=== PATIENT | female | born 1960 | race African-American/Black ===

== ENCOUNTER 2016-06-10 01:40 | Inpatient (IN) ==
[2016-06-10] MEDS ORDERED: niCARdipine 25 MG/10 ML VIAL IV ONE ×3 (02:03→12:44)
--- NOTE | 2016-06-10 02:11 | Emergency Department Note ---
Arrival - Arrival Chief Complaint: Blood Pressure ED Nursing Triage Note: C/C transfer from [facility] ER for HTN Crisis, NSTEMI, CHF. Pt stopped taking all her meds approx a year ago. Pt went to ER tonight for shortness of breath for 2 months and HTN. Pt was given ASA 325mg, Lovenox 100mg at [facility] ER Mode of Arrival: Stretcher Time Seen by Provider: 06/10/16 02:05 - History of Present Illness HPI Narrative: The patient was sent from [facility] for hypertensive emergency/ urgency. She was transferred via ambulance with IV nitroglycerin. This was poorly controlling her blood pressure. She remains relatively asymptomatic. She specifically denies chest pain at any point during the encounter or today. She denies any vomiting but was slightly nauseated and lightheaded and she also has had some blurring of vision. Allergies/Adverse Reactions: Allergies Allergy/AdvReac Type Severity Reaction Status Date / Time No Known Allergies Allergy Unverified 06/10/16 01:52 Home Medications: Home Medications Medication Instructions Recorded Confirmed Type No Known Home Medications [No 06/10/16 06/10/16 History Known Home Medications] Review of System - Review of System 12 point system: reviewed and no additional remarkable complaints except as stated Medical,Surgical,& Family Hx - Medical History Cardio: History of: Hypertension - Social History Smoking Status: Never smoker Frequency of Alcohol Use: None Type of Drug Use: None Exam Physical Examination: The patient appears well-developed and well-nourished with no acute distress. HEENT exam is unremarkable. The oropharynx is moist. Tympanic membranes are shiny. The neck appears normal with midline appearance of the trachea. There is full range of motion. The lungs are clear bilaterally. There is symmetric movement of the chest wall with inspiration. No point tenderness is present. The heart has a regular rate and rhythm with no gallops or murmurs. Abdomen demonstrates a normal appearance and is nontender with no rebound or guarding. Normal active bowel sounds are present. The extremities demonstrate no clubbing, cyanosis, or edema and are intact. Normal range of motion is present. Neurological exam is unremarkable. Cranial nerves II through XII were checked and intact. No focal motor sensory deficit is present in the extremities. Vital Signs: Vital Signs Temperature 98.3 F 06/10/16 01:41 Pulse Rate 84 03/04/17 01:41 Respiratory Rate 18 06/10/16 01:41 Blood Pressure 224/137 06/10/16 01:41 O2 Sat by Pulse Oximetry 100 06/10/16 01:41 Course - Consultations Consultation #1: Dr. Lawrence Handley will evaluate and admit the patient. Time: 02:10 Disposition Clinical Impression: Malignant hypertension Case discussed with: patient Disposition: Still a Patient Condition: Stable Time of Disposition: 02:11
[2016-06-10] MEDS: niCARdipine INJ 25 MG in SODIUM CHLORIDE 0.9% 240 ML IV SCH ×2 (02:15→06:26)
--- NOTE | 2016-06-10 03:17 | Hospitalist History & Physical ---
Assessment and Plan (1) Hypertensive emergency Status: Acute Current Visit: Yes (2) Hypokalemia Status: Acute Current Visit: Yes (3) Chronic kidney disease Status: Acute Current Visit: Yes (4) Medical non-compliance Status: Acute Assessment and plan: Plan for this patient, we will admit this patient our service. She's been put on a Cardene infusion. We'll need to start by mouth medications on her and titrate off the Cardene infusion. Recheck her labs at 7 a.m. Current supplement her with some potassium. Of feel that her increased creatinine is associated with her chronic kidney disease secondary to her untreated hypertension Current Visit: Yes History of Present Illness Chief complaint: sent from [facility] History of present illness: Ms. Serrano is a 56 year old female with past medical history is significant for hypertension who is been noncompliant with her medications to him 1 year presents as a transfer from [facility]. 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 Her blood pressure was taken and her systolic was at 300. They notified EMS and she was taken up to the [facility]. Labs were drawn and she was put on nitroglycerin infusion. Patient was diagnosed with hypertensive urgency or emergency and congestive heart failure. This was an but the congestive heart failure was based on elevated proBNP. 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 - Family History Family History: Reports;: Family Diabetes, Family Heart Disease - Social History Smoking Status: Never smoker Frequency of Alcohol Use: None Type of Drug Use: None 12 point system: reviewed and no additional remarkable complaints except as stated Exam - Constitutional Vitals: Period Temp Pulse Resp BP Sys/Eller Pulse Ox Last 24 Hr 98.3 F 84 18 224/137 100 General appearance: over weight - Head Head exam: Present: normal inspection - Eye Eye exam: Present: EOMI Pupils: Present: CLIFFORD - ENT ENT exam: Present: normal exam - Neck Neck exam: Present: normal inspection - Respiratory Respiratory exam: Present: clear to auscultation bilaterally - Cardiovascular Cardiovascular exam: Present: regular rate and rhythm - GI/Abdominal GI/Abdominal exam: Present: normal bowel sounds - Extremities Exam Extremities exam: Present: normal inspection - Back Exam Back exam: Present: normal inspection - Neurological Exam Neurological exam: Present: alert - Psychiatric Psychiatric exam: Present: normal affect Results - Labs Labs: Labs from outside facility pro-BMP to well thousand 105 magnesium 2 white count 8.8 hemoglobin 9.1 hematocrit 27.6 platelets 260 glucose 112 BUN 26 creatinine 2.4 calcium 8.5 serum sodium 142 potassium 2.8 chloride 102 bicarbonate 32
[2016-06-10] MEDS ORDERED: ALBUTEROL 2.5 MG/3 ML NEB RESP TX PRN (03:27)
[2016-06-10] MEDS ORDERED: ACETAMINOPHEN 325 MG TABLET PO PRN (03:27)
[2016-06-10 07:55] LABS: Basophils % 0.5 % (0.0-0.8); Eosinophils # 0.1 10*3/uL (0.0-0.87); Eosinophils % 1.4 % (0.00-10.9); Hematocrit 28.1 VOL% (35.7-47.0); Hemoglobin 9.1 GM/DL (12.0-16.0); Immature Granulocytes % 0.1 %; Immature Granulocytes Absolute 0.01 #; Lymphocytes % 12.7 % (21.3-54.2); Mean Corpuscular HGB Conc 32.4 GM/DL (32-36); Mean Corpuscular Hemoglobin 28 PG (27-34); Mean Corpuscular Volume 86.5 FL (87-102); Mean Platelet Volume 11.4 FL (9.6-12.0); Monocytes # 0.4 10*3/uL (0.11-0.8); Neutrophils # 6.2 10*3/uL (1.4-7.4); Neutrophils % 80.3 % (38.7-73.9); Platelet Count 250 T/CUMM (130-400); Red Blood Count 3.25 MC/CUMM (3.8-5.5); Red Cell Distribution Width 16.4 % (9.3-17.3); White Blood Count 7.7 T/CUMM (4-12)
[2016-06-10 08:24] LABS: Calcium 8.7 MG/DL (8.5-10.1); Osmolality,Calculated 291.8 MOS/KG (273-304); Thyroid Stimulating Hormone 2.58 uIU/ml (0.358-3.74)
[2016-06-10 08:36] LABS: Barbiturates Screen,Urine Negative (Negative); Benzodiazepines Screen,Urine Negative (Negative); Cannabinoid Screen,Urine Negative (Negative); Opiate Screen,Urine Negative (Negative); Phencyclidine Screen,Urine Negative (Negative)
[2016-06-10] MEDS ORDERED: PANTOPRAZOLE 40 MG TABLET PO SCH (09:00)
--- NOTE | 2016-06-10 11:07 | EKG Report ---
Stationary ECG Study [facility] ER Test Date: 06/10/2016 1:46:02 AM Pat Name: NONA SEGURA Department: Room: Gender: F [employer]: SR : 1960 Requested by: Ellis Tuttle Order Number: [id number] Reading MD: KIANA OBREGON Intervals [place] Rate: 82 P: -27 NM: 139 QRS: -26 QRSD: 113 T: -56 QT: 405 QTc: 444 Interpretive Statements SINUS RHYTHM WITH SINUS ARRHYTHMIA LEFT AXIS DEVIATION NON-SPECIFIC INTRAVENTRICULAR CONDUCTION DELAY ST DEVIATION AND T-WAVE ABNORMALITY, CONSIDER INFERIOR ISCHEMIA Electronically Signed On 06-11-16 10:57:12 RU[employer]ER GASK[employer] INSPECTOR TRIMMER by KIANA OBREGON [email or web address]
--- NOTE | 2016-06-10 12:32 | ECHO Report ---
Zach, Sydnee Exam Date: 06/10/2016 09:17 Referring Physician: Technologist: Zoran ROWELL Age: 56 Ht (in): Wt (lb): Gender: F Exam Location: [facility] Echo Indications: HTN Crisis, hypokalemia, CKD BP: / HR: Rhythm: Sinus Technical Quality: Fair IMPRESSIONS Moderate concentric left ventricular hypertrophy with diastolic dysfunction. Left ventricular ejection fraction is estimated at 50-55 %. Normal right ventricular size. Normal right atrial size. Normal left atrial size. Mildly thickened mitral valve with mild mitral regurgitation. Aortic valve sclerosis without stenosis or regurgitation. Morphologically normal tricuspid valve. Moderate tricuspid valve regurgitation. Tricuspid regurgitation velocities suggest a PAP of 28.3 mmHg + RAP. Morphologically normal pulmonic valve. No pericardial effusion. Normal size aortic root and proximal ascending aorta. MEASUREMENTS (Male / Female) Normal Values 2D ECHO LV Diastolic Diameter PLAX 4.5 cm 4.2 - 5.9 / 3.9 - 5.3 cm LV Systolic Diameter PLAX 3.4 cm LV Fractional Shortening PLAX 23.9 % IVS Diastolic Thickness 2.0 cm 0.6 - 1.0 / 0.6 - 0.9 cm LVPW Diastolic Thickness 1.4 cm 0.6 - 1.0 / 0.6 - 0.9 cm RV Internal Dim ED PLAX 2.8 cm Aortic Root Diameter 2.6 cm LA Systolic Diameter LX 3.4 cm 3.0 - 4.0 / 2.7 - 3.8 cm DOPPLER TR Peak Velocity 266.0 cm/s TR Peak Gradient 28.3 mmHg FINDINGS Left Ventricle Moderate concentric left ventricular hypertrophy with diastolic dysfunction. Left ventricular ejection fraction is estimated at 50-55 %. Right Ventricle Normal right ventricular size. Right Atrium Normal right atrial size. Left Atrium Normal left atrial size. Mitral Valve Mildly thickened mitral valve with mild mitral regurgitation. Aortic Valve Aortic valve sclerosis without stenosis or regurgitation. Tricuspid Valve Morphologically normal tricuspid valve. Moderate tricuspid valve regurgitation. Tricuspid regurgitation velocities suggest a PAP of 28.3 mmHg + RAP. Pulmonic Valve Morphologically normal pulmonic valve. Pericardium No pericardial effusion. Aorta Normal size aortic root and proximal ascending aorta. Catracho Diana MD (Electronically Signed) Final Date: 10 June 2016 12:31
[2016-06-10] MEDS ORDERED: amLODIPine 10 MG TABLET PO SCH (14:00)
[2016-06-10] MEDS: PANTOPRAZOLE 40 MG TABLET PO SCH (15:39)
[2016-06-10] MEDS: ENOXAPARIN 30 MG/0.3 ML SYRINGE SUBCUT SCH (15:40)
[2016-06-10 15:53] LABS: Apearance,Urine CLEAR (Clear); Bilirubin,Urine Negative (Negative); Blood, Urine Small mg/dL (Negative); Glucose,Urine (UA) 50 mg/dL (Negative); Ketones,Urine Negative (Negative); Nitrite,Urine Negative (Negative); Protein,Urine Negative; RBC,Urine 3 /HPF (0-4); Squamous Epithelial Cell,Urine Occasional /HPF (0-10); Urine Color Straw (Yellow); Urine Specific Gravity 1.006 (1.001-1.035); Urine Urobilinogen < 2.0 EU/DL (0.2-1.0); WBC,Urine <1 /HPF (0-6)
[2016-06-10] MEDS: POTASSIUM CHLORIDE 20 MEQ TABLET PO PRN ×3 (16:30→20:01)
[2016-06-10] MEDS: niCARdipine INJ 50 MG in SODIUM CHLORIDE 0.9% 480 ML IV SCH (21:17)
--- NOTE | 2016-06-11 07:47 | Hospitalist Progress Note ---
Hospitalist: Subjective Interval history: Patient complaining of seeing spots in her right eye this morning. She reports feeling lethargic. She denies any headache, epistaxis, chest pain, shortness of breath, palpitations, nausea, vomiting or abdominal pain. She is tolerating oral intake well. Exam - Constitutional Vitals: Period Temp Pulse Resp BP Sys/Eller Pulse Ox Last 24 Hr 97.2 F-98.8 F 79-109 16-24 127-209/75-136 96-100 Exam: GEN: Patient is awake alert and oriented 4 lying in the hospital bed in no acute distress. HEENT exam reveals pupils are equal and reactive to light. Extraocular muscles are intact. Sclerae clear. Conjunctivae pink. Nares are patent. No discharge or epistaxis noted. Oropharynx is clear. No oral lesions or thrush. Neck: Supple no lymphadenopathy or thyromegaly appreciated no JVD. Neck is short and thick. Cardiovascular: Regular rate and rhythm. Normal S1-S2. No obvious murmurs rubs or gallops. Lungs: clear to auscultation bilaterally. Diminished at the bases. Nonlabored breathing noted. Abdomen: Soft nontender nondistended positive bowel sounds no organomegaly or masses appreciated though difficult to assess given her body habitus. Extremity: Warm and well perfused. No clubbing cyanosis or edema. Neuro exam: Cranial nerves II through XII are intact except for decreased visual acuity of the right eye. Motor exam revealed 5 out of 5 strength of the upper and lower extremities bilaterally. Sensory exam was grossly intact. Gait was not assessed. Babinski was absent. No clonus noted. Results - Labs CBC & BMP: 06/10/16 07:38 06/11/16 07:27 - Impressions (1) Hypertensive urgency Status: Acute Current Visit: Yes -Off Cardene since early this am. BP better controlled on Clonidine and Nifedipine. F/U ECHO. Monitor vitals (2) Hypokalemia Status: Acute Current Visit: Yes - replace. recheck. (3) Chronic kidney disease Status: Acute Current Visit: Yes -Creatinine stable. I suspect this may be CKD stage 3 due to uncontrolled HTN (4) Right visual changes Status: Acute Current Visit: Yes - Check CT head. Recommend outpatient optometry appointment. (5) Fatigue Status: Acute Current Visit: Yes - Likely multifactorial due to better BP control, possible Vitamin B12/ Vitamin D deficiency. - Check levels Can possibly transfer out of the unit later this evening if BP remains well controlled. I will be away several days. One of my associates will follow in my absence. Quality Measures - Stroke Symptom Onset Unknown: No
[2016-06-11] MEDS: ENOXAPARIN 30 MG/0.3 ML SYRINGE SUBCUT SCH ×2 (07:56→08:00)
[2016-06-11] MEDS: PANTOPRAZOLE 40 MG TABLET PO SCH ×2 (07:56→08:00)
[2016-06-11 08:12] LABS: Calcium 7.8 MG/DL (8.5-10.1); Osmolality,Calculated 297.4 MOS/KG (273-304); Potassium 3.3 MMOL/L (3.5-5.1)
--- NOTE | 2016-06-11 10:08 | CT Report ---
CT brain Indication: Blurry vision Comparison: 28 March 2009 Technique: Axial CT imaging of the brain is performed without contrast with 3 mm increments. Findings: No evidence of hemorrhage, mass mass effect midline shift or acute infarct seen. There is moderate diffuse cerebral atrophy. There are areas of decreased density seen within the white matter. Otherwise the brain parenchyma attenuation and differentiation appears within normal limits. The ventricles and cisterns are normal in caliber. No cranial or skull base abnormality is identified. Impression: No evidence of acute process or interval change. PROCEDURE INTERPRETED AT [facility] DEPARTMENT OF RADIOLOGY Final Report Signed by: Dr. Prabhakar Michele
[2016-06-11] MEDS: POTASSIUM CHLORIDE 20 MEQ TABLET PO PRN ×3 (13:00→19:02)
[2016-06-12] MEDS: POTASSIUM CHLORIDE 20 MEQ TABLET PO PRN (02:01)
[2016-06-12 05:56] LABS: Albumin 3.4 G/DL (3.4-5.0); Calcium 8.1 MG/DL (8.5-10.1); Osmolality,Calculated 294.7 MOS/KG (273-304); Phosphorous 3.8 MG/DL (2.5-4.9); Potassium 3.9 MMOL/L (3.5-5.1)
[2016-06-12 06:05] LABS: 25 Hydroxy Vitamin D Total 27.1 NG/ML
[2016-06-12] MEDS: niCARdipine INJ 50 MG in SODIUM CHLORIDE 0.9% 480 ML IV SCH (06:37)
--- NOTE | 2016-06-12 08:20 | Hospitalist Progress Note ---
Assessment and Plan (1) Malignant hypertension Status: Acute Assessment and plan: The patient has improved blood pressure control. Within a continue long-acting Procardia as well as clonidine. The patient will transfer to a monitored bed. We will begin Zestril to help with her chronic kidney disease and monitor creatinine closely. We will use metoprolol as required for any uncontrolled high blood pressure. We'll recheck electrolytes tomorrow. Current Visit: Yes (2) Chronic kidney disease Status: Acute Current Visit: Yes Qualifiers: Chronic kidney disease stage: stage 4 (severe) Qualified Code(s): N18.4 - Chronic kidney disease, stage 4 (severe) Hospitalist: Subjective Interval history: The patient was admitted to the hospital with malignant hypertension. The patient's blood pressure has improved with a combination of intravenous Cardene and starting on oral medications. Blood pressure is reasonably well controlled presently and the patient is ready for transfer to the floor. The patient's oral intake is appropriate and she is having bowel movement this morning. Exam - Constitutional Vitals: Period Temp Pulse Resp BP Sys/Eller Pulse Ox Last 24 Hr 97.2 F-98.1 F 72-103 16-28 123-172/81-113 96-100 Exam: Constitutional System: No distress. No tremulousness. Head: Normocephalic, atraumatic. Ears, Nose and Throat System: No evidence of Otitis or Mastoiditis. No epistaxis or discharge Eyes System: Pupils equal, round, and reactive. Extraocular muscles intact. Neck: Supple, without adenopathy, No jugular venous distention. No thyromegaly , neck mass, or prior surgery apparent. Respiratory System: Chest clear to auscultation. Cardiovascular System: Heart with regular rate and rhythm. No murmur. GI System: Abdomen soft, nontender. Normoactive bowel sounds present. Musculoskeletal System: limbs with no pedal edema. Full distal pulses. Neurological System: No discernable sensory deficit. No aphasia Psychiatric System: Conversation is rational Results - Labs CBC & BMP: 06/10/16 07:38 06/12/16 04:30 Lab Results: I have reviewed the past 24 hour labs Quality Measures - Stroke Symptom Onset Unknown: No
[2016-06-12] MEDS: ENOXAPARIN 30 MG/0.3 ML SYRINGE SUBCUT SCH (10:23)
[2016-06-12] MEDS: PANTOPRAZOLE 40 MG TABLET PO SCH (10:24)
[2016-06-12] MEDS ORDERED: LISINOPRIL 2.5 MG TABLET PO SCH (12:44)
[2016-06-12] MEDS: METOPROLOL TARTRATE 25 MG TABLET PO PRN ×2 (14:00→20:40)
[2016-06-13] MEDS: METOPROLOL TARTRATE 25 MG TABLET PO PRN ×3 (05:59→20:45)
[2016-06-13 06:23] LABS: Basophils % 0.3 % (0.0-0.8); Eosinophils # 0.1 10*3/uL (0.0-0.87); Eosinophils % 2.8 % (0.00-10.9); Hematocrit 25.9 VOL% (35.7-47.0); Immature Granulocytes % 0.3 %; Immature Granulocytes Absolute 0.01 #; Lymphocytes # 0.7 10*3/uL (1.4-4.0); Lymphocytes % 21.4 % (21.3-54.2); Mean Corpuscular HGB Conc 30.9 GM/DL (32-36); Mean Corpuscular Hemoglobin 28 PG (27-34); Mean Corpuscular Volume 89.3 FL (87-102); Mean Platelet Volume 11.9 FL (9.6-12.0); Monocytes # 0.2 10*3/uL (0.11-0.8); Monocytes % 7.4 % (1.7-12.7); Neutrophils # 2.2 10*3/uL (1.4-7.4); Neutrophils % 67.8 % (38.7-73.9); Platelet Count 207 T/CUMM (130-400); White Blood Count 3.2 T/CUMM (4-12)
[2016-06-13 06:56] LABS: Calcium 8.4 MG/DL (8.5-10.1); Potassium 3.7 MMOL/L (3.5-5.1)
[2016-06-13] MEDS ORDERED: LISINOPRIL 5 MG TABLET PO SCH (09:00)
--- NOTE | 2016-06-13 09:02 | Hospitalist Progress Note ---
Assessment and Plan (1) Malignant hypertension Status: Acute Assessment and plan: The patient has improved blood pressure control. Within a continue long-acting Procardia as well as clonidine. The patient will transfer to a monitored bed. Creatinine is stable. I'm going to increase his Zestril to 5 mg daily. We will use metoprolol as required for any uncontrolled high blood pressure. We' ll recheck electrolytes tomorrow. I anticipate discharge home tomorrow. I reviewed with the patient that she needs to be compliant with her oral antihypertensive regimen. Current Visit: Yes (2) Chronic kidney disease Status: Acute Current Visit: Yes Qualifiers: Chronic kidney disease stage: stage 4 (severe) Qualified Code(s): N18.4 - Chronic kidney disease, stage 4 (severe) Hospitalist: Subjective Interval history: The patient is resting quietly in her room. She has been up to toilet this morning and gait is stable. I reviewed her hospitalization and plan of care with her daughter by telephone at the bedside. The patient states she has seen Dr. Sellers in the past for blood pressure management but is not seeing a primary care physician at this time. He was previously at the [facility] in the Is no longer practicing failure. The patient requests that we make referral for a new primary care physician. Exam - Constitutional Vitals: Period Temp Pulse Resp BP Sys/Eller Pulse Ox Last 24 Hr 98.1 F-101.0 F 76-89 16-26 145-195/90-120 98-100 Exam: Constitutional System: No distress. No tremulousness. Head: Normocephalic, atraumatic. Ears, Nose and Throat System: No evidence of Otitis or Mastoiditis. No epistaxis or discharge Eyes System: Pupils equal, round, and reactive. Extraocular muscles intact. Neck: Supple, without adenopathy, No jugular venous distention. No thyromegaly , neck mass, or prior surgery apparent. Respiratory System: Chest clear to auscultation. Cardiovascular System: Heart with regular rate and rhythm. No murmur. GI System: Abdomen soft, nontender. Normoactive bowel sounds present. Musculoskeletal System: limbs with no pedal edema. Full distal pulses. Neurological System: No discernable sensory deficit. No aphasia Psychiatric System: Conversation is rational Results - Labs CBC & BMP: 06/13/16 05:33 06/13/16 05:33 Lab Results: I have reviewed the past 24 hour labs Quality Measures - Stroke Symptom Onset Unknown: No
[2016-06-13] MEDS: PANTOPRAZOLE 40 MG TABLET PO SCH (09:04)
[2016-06-13] MEDS ORDERED: hydrALAZINE 20 MG/1 ML VIAL IV PRN (22:25)
[2016-06-13] MEDS ORDERED: LABETALOL 20 MG/4 ML SYRINGE IV PRN (22:27)
[2016-06-14 07:14] LABS: Calcium 8.6 MG/DL (8.5-10.1); Magnesium 1.9 MG/DL (1.8-2.4); Osmolality,Calculated 295.6 MOS/KG (273-304); Potassium 3.6 MMOL/L (3.5-5.1)
[2016-06-14] MEDS: PANTOPRAZOLE 40 MG TABLET PO SCH (08:58)
[2016-06-14] MEDS ORDERED: LISINOPRIL 10 MG TABLET PO SCH (09:00)
--- NOTE | 2016-06-14 10:59 | Discharge Summary ---
Hospital Course - Hospital Course Hospital Course: The patient was admitted with malignant hypertension. The patient had some confusion at the time of admission. The patient was treated in the intensive care unit with Cardene infusion. The patient has been off oral medications for several months. We restarted oral medications and made some adjustments. The patient has reached maximum medical benefit of hospitalization is now ready for discharge home and outpatient follow-up. Her prescriptions were updated and sent to [facility] in [place]. At the time of discharge, chest is clear, abdomen soft, extremities without edema. - Time spent with patient Time with patient DS: Greater than 30 minutes Diagnosis - Discharge Diagnosis (1) Malignant hypertension Status: Resolved (2) Chronic kidney disease Status: Chronic Discharge Plan - Discharge Data Disposition: Disch To Home/Self Care Condition at Discharge: Stable Discharge Diet: heart healthy Activity: resume usual activities as tolerated - Discharge Medications New Metoprolol Tartrate Tab [Lopressor Tab] 50 mg PO BID #100 tablet cloNIDine TAB [Catapres Tab] 0.2 mg PO BID #100 tablet Lisinopril [Prinivil] 10 mg PO DAILY #100 tablet NIFEdipine XL TAB [Procardia Xl] 60 mg PO BID #100 tablet - Follow Up or Referral - Forms/Instructions Exam - Constitutional Vitals: Period Temp Pulse Resp BP Sys/Eller Pulse Ox Last 24 Hr 98.0 F-98.5 F 65-84 20-22 137-190/83-112 96-99 Discharge Results Procedures and tests throughout hospitalization: Pending Orders 06/15/16 04:00 Basic Metabolic Panel w/Mg IN AM Labs on day of discharge: Labs from last 24 hours 06/14/16 06:36 Sodium 146 H Potassium 3.6 Chloride 109 H Carbon Dioxide 25 Anion Gap 15.6 H BUN 33 H Creatinine 2.30 H GFR Calculation 33 BUN/Creatinine Ratio 14.00 Glucose 88 Calculated Osmolality 295.6 Calcium 8.6 Magnesium 1.9 DS: Provider Date of admission: 06/10/16 03:27 Primary care physician: . No PCP Attending physician on admission: Pamela Herman MD Consults: 06/10/16 08:57 Consult to Pharmacy [CONS] Routine Reason for Pharmacy Consult: Adjust Meds Renal Funct 06/13/16 08:58 Consult to Case Mgmt/Social Srvs [CONS] Routine Reason for Case Mgmt/Social Srvs: Discharge Planning Consult Comment: patient needs referral for outpatient PCP Discharging clinician: Shaw Mitchell MD
[2016-06-14 13:59] VITALS: BP 160/77
== END 2016-06-14 16:25 | disposition home or self-care (01) | DRG 305 ==
LOC: N.ED 01:40 → N.EDINP 03:27 → SUATTDRO 03:27 → N.CC 13:20 → N.2E 06-12 18:15
PROVIDERS: ADMIT Pediatrics; ATTEND Internal Medicine

== ENCOUNTER 2016-06-19 23:05 | Observation (INO) ==
[2016-06-19] MEDS ORDERED: ASPIRIN 325 MG TABLET PO STA (23:31)
[2016-06-19] MEDS ORDERED: NITROGLYCERIN 2% OINT 1 INCH/GM PACK TOP STA (23:31)
--- NOTE | 2016-06-19 23:36 | Emergency Department Note ---
Arrival - Arrival Chief Complaint: Non-Specific Stated Complaint: for admittion per. Roland Return ED Nursing Triage Note: Patient complains of numbness to left arm that began this morning. Radial and brachial pulses present. Patient recently left AMA and states that she is back to be admitted to the hospital. Mode of Arrival: Ambulatory Limitations: No Limitations Source: Patient Time Seen by Provider: 06/19/16 23:31 - History of Present Illness HPI Narrative: Patient was here earlier worked up completely. She was to be admitted to the hospital and decided to sign herself out AMA to go home and take care of her dog. Now she presents back with no new changes for admission. I think there is an air above because patient tells me that she is numbness and tingling in her right hand. Nurses I think of documented left arm in this chart. Please see previous chart for complete details. Moderate pain, does not makes it better or worse, feels like pins and needles sticking in her hand. She was here earlier this month for hypertensive emergency and says she has been taking her medication. Allergies/Adverse Reactions: Allergies Allergy/AdvReac Type Severity Reaction Status Date / Time No Known Allergies Allergy Unverified 06/10/16 01:52 Home Medications: Home Medications Medication Instructions Recorded Confirmed Type Lisinopril [Prinivil] 10 mg PO DAILY #100 tablet 06/14/16 06/19/16 Rx Metoprolol Tartrate Tab [Lopressor 50 mg PO BID #100 tablet 06/14/16 06/19/16 Rx Tab] NIFEdipine XL TAB [Procardia Xl] 60 mg PO BID #100 tablet 06/14/16 06/19/16 Rx cloNIDine TAB [Catapres Tab] 0.2 mg PO BID #100 tablet 06/14/16 06/19/16 Rx Review of System - Review of System 12 point system: reviewed and no additional remarkable complaints except as stated - Review of System Constitutional: Absent: fever Respiratory: Absent: cough Medical,Surgical,& Family Hx - Medical History Cardio: History of: Hypertension - Surgical History HEENT Surgeries: Surgical HX of: Thyroid Surgery - Family History Family History: Reports;: Family Diabetes, Family Heart Disease - Social History Smoking Status: Unknown if ever smoked Frequency of Alcohol Use: None Type of Drug Use: None Exam Physical Examination: General: Well-developed well-nourished, no apparent distress. Noted elevated blood pressure Head: Normocephalic, atraumatic. Eyes: PERRLA, EOMI. Nose: No obvious acute deformities or discharge. Mouth: No obvious acute injury. Neck: Full range of motion without obvious pain. No midline tender to palpation. Lymphatic: no significant lymphadenopathy noted. Lungs: Clear to auscultation bilaterally, normal and equal air movement bilaterally, no obvious rales or wheezing. Heart: regular rate and rhythm, no obvious mummers. Abdomen: Soft nontender, nondistended, normal active bowel sounds. Skin: No obivous acute lesions noted Musculoskeletal: No gross deformities. Neurological: No focal findings, cranial nerves II through XII grossly normal. Psychiatric: Appropriate mood.. : Deferred Vital Signs: Vital Signs Temperature 99.5 F 06/19/16 23:20 Pulse Rate 81 06/19/16 23:20 Respiratory Rate 20 06/19/16 23:20 Blood Pressure 203/124 06/19/16 23:20 O2 Sat by Pulse Oximetry 99 06/19/16 23:20 Course Course Narrative: Since patient was here a couple hours ago no new testing is merited. - Reevaluation(s) Reevaluation #1: I discussed this patient with Dr. Lawrence Reyes who saw her earlier in the ER. He like me wanted to admit her at that time. Patient signed out AMA. He will come to the ER and admit the patient at this time. Time: 23:40 Results - Labs Lab Results: I have reviewed the patients labs (Severe extensive testing done on previous exam today. I have reviewed this.) Disposition Clinical Impression: Right hand paresthesia, Hypertensive urgency, Renal insufficiency, Abnormal brain CT Case discussed with: patient Disposition: Still a Patient Condition: Stable Time of Disposition: 23:40
[2016-06-20] MEDS ORDERED: cloNIDine 0.1 MG TABLET PO STA
[2016-06-20] MEDS ORDERED: cloNIDine 0.1 MG TABLET ONE (00:06)
--- NOTE | 2016-06-20 00:11 | Hospitalist History & Physical ---
Assessment and Plan (1) CVA (cerebral vascular accident) Status: Acute Current Visit: Yes (2) Malignant hypertension Status: Resolved Current Visit: No (3) Chronic kidney disease Status: Chronic Current Visit: No Qualifiers: Chronic kidney disease stage: stage 4 (severe) Qualified Code(s): N18.4 - Chronic kidney disease, stage 4 (severe) (4) Poorly-controlled hypertension Status: Acute Current Visit: No (5) Renal insufficiency Status: Acute Current Visit: No (6) Right hand paresthesia Status: Acute Assessment and plan: Plan for this patient: We will admit this patient to our service. Will do a stroke workup on this patient including an MRI, carotid ultrasound, 2D echo and neurology consult. We will continue home meds as discharged. She does have a slight bump in her creatinine. We will need to continue to monitor that. She is significant risk for a stroke. She maintains that her blood pressure is still elevated on medications. Once in the hospital will see how she does with her blood pressure. Have some as needed medications for blood pressure control. Current Visit: Yes History of Present Illness Chief complaint: Right hand numbness and tingling History of present illness: Ms. Serrano is a 56 year old female with past medical history significant for hypertension who was in her normal state of health until this morning. Patient woke up with numbness in her right hand. 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 She originally came up to the emergency room for evaluation but left AMA and that has since returned after she took care of her pet situation at home. Upon questioning the patient about what her blood pressures been running she maintains that she has been taking her medications and that it runs 180s systolic and 110-120 diastolic. Patient thought she was having a stroke and she came up to our hospital for further evaluation. She said her grandmother had had a stroke and her cousin has had a recent stroke. Home Medications Medication Instructions Recorded Confirmed Type Lisinopril [Prinivil] 10 mg PO DAILY #100 tablet 06/14/16 06/19/16 Rx Metoprolol Tartrate Tab [Lopressor 50 mg PO BID #100 tablet 06/14/16 06/19/16 Rx Tab] NIFEdipine XL TAB [Procardia Xl] 60 mg PO BID #100 tablet 06/14/16 06/19/16 Rx cloNIDine TAB [Catapres Tab] 0.2 mg PO BID #100 tablet 06/14/16 06/19/16 Rx Allergies Allergy/AdvReac Type Severity Reaction Status Date / Time No Known Allergies Allergy Unverified 06/10/16 01:52 Medical,Surgical,& Family Hx - Medical History Cardio: History of: Hypertension - Surgical History HEENT Surgeries: Surgical HX of: Thyroid Surgery - Family History Family History: Reports;: Family Diabetes, Family Heart Disease - Social History Smoking Status: Unknown if ever smoked Frequency of Alcohol Use: None Type of Drug Use: None 12 point system: reviewed and no additional remarkable complaints except as stated Exam - Constitutional Vitals: Period Temp Pulse Resp BP Sys/Eller Pulse Ox Last 24 Hr 99.5 F 81 20 203/124 99 General appearance: over weight - Head Head exam: Present: normal inspection - Eye Eye exam: Present: EOMI Pupils: Present: CLIFFORD - ENT ENT exam: Present: normal exam - Neck Neck exam: Present: normal inspection - Respiratory Respiratory exam: Present: clear to auscultation bilaterally - Cardiovascular Cardiovascular exam: Present: regular rate and rhythm - GI/Abdominal GI/Abdominal exam: Present: normal bowel sounds - Extremities Exam Extremities exam: Present: normal inspection - Back Exam Back exam: Present: normal inspection - Neurological Exam Neurological exam: Present: alert, other - Psychiatric Psychiatric exam: Present: normal affect, normal mood - Skin Skin exam: Present: normal color Results - Labs Labs: Labs from previous ER visit displayed white count 6.3 hemoglobin 11.0 hematocrit 34.6 platelets 380 sodium 145 potassium 3.5 chloride 107 bicarb 27 BUN 23 creatinine 2.8 glucose 107 total bili 0.4 AST 16 ALT 31 alk phos 92 total protein 7.3 albumin 4.0 globulin 3.3 albumin 4.0
[2016-06-20] MEDS ORDERED: ONDANSETRON 4 MG/2 ML VIAL IV PRN (00:16)
[2016-06-20] MEDS ORDERED: ACETAMINOPHEN 325 MG TABLET PO PRN (00:16)
[2016-06-20] MEDS ORDERED: LABETALOL 20 MG/4 ML SYRINGE IV PRN (00:16)
[2016-06-20] MEDS: hydrALAZINE 20 MG/1 ML VIAL IV PRN (06:28)
[2016-06-20 07:22] LABS: Calcium 8.6 MG/DL (8.5-10.1); Osmolality,Calculated 293.6 MOS/KG (273-304); Potassium 3.3 MMOL/L (3.5-5.1)
[2016-06-20 07:27] LABS: Risk Ratio 4.63; VLDL CHOLESTEROL 27.8 MG/DL
[2016-06-20] MEDS: LISINOPRIL 10 MG TABLET PO SCH (08:34)
[2016-06-20] MEDS: PANTOPRAZOLE 40 MG TABLET PO SCH (08:34)
[2016-06-20] MEDS: METOPROLOL TARTRATE 50 MG TABLET PO SCH ×2 (08:34→20:51)
[2016-06-20] MEDS: ASPIRIN 325 MG TABLET PO SCH (08:35)
--- NOTE | 2016-06-20 08:47 | Ultrasound Report ---
History: Weakness and numbness right arm Date: 06/20/2016 Study: Carotid duplex ultrasound Comparison exam: March 28, 2009 Color Doppler, wave form analysis, and grayscale analysis of the cervical carotid arteries was performed. There is no significant plaque in either carotid bulb. Waveform analysis shows proper directional flow of the cervical carotid arteries. There is antegrade flow in either vertebral artery. The distal right ICA measures 5.1 mm diameter; the left measures 6.3 mm diameter. Peak systolic velocities are as follows: Right CCA 87 cm/s Right ICA 49 cm/s Right ECA 75 cm/s Right vertebral 47 cm/s Right IC/CC ratio 0.6 Left CCA 92 cm/s Left ICA 89 cm/s Left ECA 48 cm/s Left vertebral 49 cm/s Left IC/CC ratio 1.0 There is 0-15% diameter reduction narrowing of the right and 16-49% of the left internal carotid artery using indirect NASCET criteria. Ultrasound images were captured and archived. Impression: No hemodynamically significant internal carotid artery stenosis PROCEDURE INTERPRETED AT [facility] DEPARTMENT OF RADIOLOGY Final Report Signed by: Dr. Ese Garcia
--- NOTE | 2016-06-20 12:22 | Magnetic Resonance Report ---
History: Right hand paresthesias and weakness. CVA Date: 06/20/2016 Study: MRI brain without IV contrast Comparison exam: CT head 06/19/2016 and MRI brain October 27, 2010 available The brain was imaged in 3 planes on the 1.5 Lillian magnet without IV contrast, to include diffusion, T2, FLAIR, gradient echo, and T1-weighted sequences. The exam was performed on the day of admission. The ventricles are midline in position without evidence of hydrocephalus. There is no Chiari I malformation. There is no gross pituitary mass. There is a small ill-defined 8 mm area of increased T2 and FLAIR signal in the mid to inferior left cerebellar hemisphere which has some isointense and minimally hyperintense signal on the DWI sequence and could represent subacute ischemia. No definite recent diffusion abnormality seen otherwise. There is chronic lacunar infarction in the right eubanks radiata extending into the proximal body of the right caudate nucleus. There is a moderate amount of patchy increased FLAIR and T2 signal in the periventricular white matter without mass effect which could represent changes of small vessel disease. These white matter changes have moderately progressed since the comparison study of October 27, 2010. Underlying demyelination would also have to be considered. There is no acute hemorrhage. There is no area of rubén mass effect. There is no extra-axial hematoma. There is a normal flow void in the superior sagittal sinus. There is no gross flow abnormality in the [place] area. The partially visualized paranasal sinuses are generally clear. Impression: Signal abnormality in the mid to inferior left cerebellar hemisphere which could represent subacute area of lacunar ischemia Moderately progressive periventricular white matter signal abnormality compared to 2011. This could represent progressive periventricular small vessel disease. Also consider the possibility of underlying demyelination. Chronic lacunar infarction right eubanks radiata extending into the caudate nucleus as before PROCEDURE INTERPRETED AT [facility] DEPARTMENT OF RADIOLOGY Final Report Signed by: Dr. Ese Garcia
--- NOTE | 2016-06-20 15:08 | Neurology Consult Note ---
History of Present Illness History of present illness: Ms. Serrano is a 56 year old female with past medical history significant for hypertension who was in her normal state of health until yesterday morning. Patient woke up with numbness in her right little and ring finger. 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 She originally came up to the emergency room for evaluation but left AMA and that has since returned after she took care of her pet situation at home. Upon questioning the patient about what her blood pressures been running she maintains that she has been taking her medications and that it runs 180s systolic and 110-120 diastolic. It has gotten better though. Patient thought she was having a stroke and she came up to our hospital for further evaluation. MRI of the brain read as questionable subacute infarct in the left cerebellum however it does not explain her symptoms and I do not think she has a stroke on MRI. She quit taking aspirin a year or so ago for some unknown reason. Home Medications Medication Instructions Recorded Confirmed Type Lisinopril [Prinivil] 10 mg PO DAILY #100 tablet 06/14/16 06/20/16 Rx Metoprolol Tartrate Tab [Lopressor 50 mg PO BID #100 tablet 06/14/16 06/20/16 Rx Tab] NIFEdipine XL TAB [Procardia Xl] 60 mg PO BID #100 tablet 06/14/16 06/20/16 Rx cloNIDine TAB [Catapres Tab] 0.2 mg PO BID #100 tablet 06/14/16 06/20/16 Rx Allergies Allergy/AdvReac Type Severity Reaction Status Date / Time No Known Allergies Allergy Unverified 06/10/16 01:52 12 point system: reviewed and no additional remarkable complaints except as stated Medical,Surgical,& Family Hx - Medical History Cardio: History of: Hypertension - Surgical History HEENT Surgeries: Surgical HX of: Thyroid Surgery - Family History Family History: Reports;: Family Diabetes, Family Heart Disease - Social History Smoking Status: Unknown if ever smoked Frequency of Alcohol Use: None Type of Drug Use: None Exam - Constitutional Vitals: Period Temp Pulse Resp BP Sys/Eller Pulse Ox Last 24 Hr 97.4 F-98.4 F 63-76 16-20 143-197/89-116 95-100 Exam: GENERAL: Patient is in no acute distress. NECK: Neck is supple. There is no JVD. No carotid bruits present. No thyroid masses. CVS: First and second heart sounds are normal. There is no S3 present. Regular rate and rhythm. RESPIRATORY: Lungs are clear to auscultation without any rales or rhonchi. ABDOMEN: Soft and non-tender. Bowel sounds are present. There is no hepatosplenomegaly. EXT: There is no palpable edema. Peripheral pulses are present. Skin: No rashes Central Nervous system: General: Alert, awake and Oriented x 3 Speech: Fluent Comprehension: Intact and normal Facial expressions: Normal Cranial Nerves: CN1/Olfactory: Normal CN II/ Optic: Normal, Visual [place]anco unreliable CN III, and : CLIFFORD & EOMI CN V: Normal & intact CN VII: face is symmetric CNVIII: Normal CN XI/X/XI/XII: Intact and Normal Motor: Bulk and Tone is normal. Strength in the right 5/5 Strength in the left 5/5 Sensory: Decreased for all the modalities of PP, LT and temp sense in the right ulnar nerve distribution Reflexes: 1+ and symmetrical Cerebellar function: Normal finger to nose and heel to ybarra testing. Toes: Equivocal Gait: Normal Results - Labs CBC & BMP: 06/20/16 06:36 Assessment and Plan (1) Ulnar neuropathy of right upper extremity Status: Acute Assessment and plan: Continue aspirin a day Okay to go home from neuro standpoint We will perform NCS/EMG as an outpatient Follow-up in 2 week Sign off. Please call PRN Current Visit: Yes Specialty Discharge - Follow Up or Referrals Follow up with: Leon Ha MD [Physician] - 2 Weeks
--- NOTE | 2016-06-20 15:50 | ECHO Report ---
Zach, Sydnee Exam Date: 06/20/2016 10:34 Referring Physician: Technologist: Zoran ROWELL Age: 56 Ht (in): Wt (lb): Gender: F Exam Location: [facility] Echo Indications: CVA, HTN, CKD, R handed numbness BP: / HR: Rhythm: Sinus Technical Quality: IMPRESSIONS 1-2+ left atrial enlargement 3-4+ concentric LVH Borderline LV systolic function with ejection fraction estimated 50% without segmental wall motion normality 1-2+ tricuspid regurgitation with RVSP 19 mmHg plus RAP MEASUREMENTS (Male / Female) Normal Values 2D ECHO LV Diastolic Diameter PLAX 4.6 cm 4.2 - 5.9 / 3.9 - 5.3 cm LV Systolic Diameter PLAX 3.6 cm LV Fractional Shortening PLAX 20.5 % IVS Diastolic Thickness 2.0 cm 0.6 - 1.0 / 0.6 - 0.9 cm LVPW Diastolic Thickness 1.8 cm 0.6 - 1.0 / 0.6 - 0.9 cm RV Internal Dim ED PLAX 2.9 cm Aortic Root Diameter 2.9 cm LA Systolic Diameter LX 4.0 cm 3.0 - 4.0 / 2.7 - 3.8 cm DOPPLER TR Peak Velocity 216.0 cm/s TR Peak Gradient 18.7 mmHg FINDINGS Left Ventricle Severely increased septal wall thickness. Severely increased posterior wall thickness.moderate concentric left ventricular hypertrophy with diastolic dysfunction. Left ventricular ejection fraction is estimated Right Ventricle Normal right ventricular size. Right Atrium Normal right atrial size. Left Atrium Mildly increased left atrial diameter. Mitral Valve Mildly thickened mitral valve with mild mitral regurgitation. Aortic Valve Aortic valve sclerosis without stenosis or regurgitation. Tricuspid Valve Morphologically normal tricuspid valve. [id number] tricuspid valve regurgitation. Tricuspid regurgitation velocities suggest a PAP of 18.7 mmHg + RAP. Pulmonic Valve Morphologically normal pulmonic valve. Pericardium No pericardial effusion. Aorta Normal size aortic root and proximal ascending aorta. Shoaib Shaikh (Electronically Signed) Final Date: 20 June 2016 15:49
--- NOTE | 2016-06-20 16:53 | Hospitalist Progress Note ---
Assessment and Plan - Time spent with patient Time spent with patient: Greater than 30 minutes (1) Malignant hypertension Status: Resolved Assessment and plan: Blood pressures are getting better control. Titrate antihypertensives accordingly. Current Visit: No (2) Hypokalemia Status: Acute Assessment and plan: Replace and monitor basic metabolic profile. Get magnesium level. Current Visit: No (3) Chronic kidney disease Status: Chronic Assessment and plan: Monitor basic metabolic profile. Renally dose medications. Current Visit: No Qualifiers: Chronic kidney disease stage: stage 4 (severe) Qualified Code(s): N18.4 - Chronic kidney disease, stage 4 (severe) (4) Right hand paresthesia Status: Acute Assessment and plan: Await results of magnetic resonance imaging of the brain. Follow Neurology recommendations. Continue with aspirin. Current Visit: Yes Hospitalist: Subjective Interval history: Patient seen and examined. she was still expressing numbness in her right hand although slightly improved. Magnetic resonance imaging of the brain awaited but I doubt patient had a stroke. review of systems: patient denies chest pain, shortness of breath, dizziness or palpitations. Ten point review of systems was negative except as mentioned above. Exam - Constitutional Vitals: Period Temp Pulse Resp BP Sys/Eller Pulse Ox Last 24 Hr 97.4 F-98.4 F 63-76 16-20 143-197/89-116 95-100 General appearance: over weight - Head Head exam: Present: normocephalic, atraumatic - Eye Eye exam: Present: EOMI Pupils: Present: CLIFFORD - Neck Neck exam: Absent: lymphadenopathy, thyromegaly - Respiratory Respiratory exam: Present: clear to auscultation bilaterally - Cardiovascular Cardiovascular exam: Absent: diastolic murmur, JVD, systolic murmur - GI/Abdominal GI/Abdominal exam: Present: normal bowel sounds - Extremities Exam Extremities exam: Absent: edema - Neurological Exam Neurological exam: Present: alert, oriented X3, CN II-XII intact, reflexes normal. Absent: motor sensory deficit - Psychiatric Psychiatric exam: Present: normal mood - Skin Skin exam: Present: normal color Results - Labs CBC & BMP: 06/20/16 06:36 Specialty Discharge - Follow Up or Referrals Follow up with: Leon Ha MD [Physician] - 2 Weeks
[2016-06-21] MEDS: hydrALAZINE 20 MG/1 ML VIAL IV PRN (05:18)
[2016-06-21 07:18] LABS: Basophils % 0.7 % (0.0-0.8); Eosinophils # 0.2 10*3/uL (0.0-0.87); Hematocrit 30.7 VOL% (35.7-47.0); Hemoglobin 9.8 GM/DL (12.0-16.0); Immature Granulocytes % 0.2 %; Immature Granulocytes Absolute 0.01 #; Lymphocytes # 1.6 10*3/uL (1.4-4.0); Lymphocytes % 34.4 % (21.3-54.2); Mean Corpuscular HGB Conc 31.9 GM/DL (32-36); Mean Corpuscular Hemoglobin 27 PG (27-34); Mean Corpuscular Volume 85.5 FL (87-102); Mean Platelet Volume 11.2 FL (9.6-12.0); Monocytes # 0.3 10*3/uL (0.11-0.8); Monocytes % 5.7 % (1.7-12.7); Neutrophils # 2.5 10*3/uL (1.4-7.4); Platelet Count 346 T/CUMM (130-400); Red Blood Count 3.59 MC/CUMM (3.8-5.5); White Blood Count 4.6 T/CUMM (4-12)
[2016-06-21 07:43] LABS: Calcium 8.8 MG/DL (8.5-10.1); Magnesium 1.8 MG/DL (1.8-2.4); Osmolality,Calculated 292.7 MOS/KG (273-304); Potassium 3.6 MMOL/L (3.5-5.1)
[2016-06-21 07:52] VITALS: BP 128/68
[2016-06-21] MEDS: LISINOPRIL 10 MG TABLET PO SCH (08:08)
[2016-06-21] MEDS: ASPIRIN 325 MG TABLET PO SCH (08:08)
[2016-06-21] MEDS: METOPROLOL TARTRATE 50 MG TABLET PO SCH (08:08)
[2016-06-21] MEDS: PANTOPRAZOLE 40 MG TABLET PO SCH (08:08)
--- NOTE | 2016-06-21 10:02 | Discharge Summary ---
Hospital Course - Hospital Course Hospital Course: Patient presented with right hand numbness and tingling. She has a history of severe hypertension. She is also noncompliant with antihypertensives. She initially presented for treatment on 06/19/2016 but left AGAINST MEDICAL ADVICE to take care of her pet situation at home. She reported that her blood pressures had been running about 180s over 110s to 120s. She thought she was having a stroke and that that was why she presented. Her initial blood pressure on June 19, 2016 was 203/124. Subsequent blood pressure on 06/20/2016 when she came back was 165/115. CT head done on 2016 revealed no acute intracranial processes. MRI of the brain done on 2016 revealed signal abnormality in the mid to inferior left cerebellar hemisphere which could represent subacute area of lacunar ischemia. This however did not explain patient's right hand numbness and tingling. Patient was seen in consult by neurology (Dr. Ha) who felt that she was having right upper extremity neuropathy. He recommended that patient continues with aspirin daily and for patient to follow up with him in 2 weeks for possible NCS / EMG as outpatient. Patient was seen and examined today. Her right hand numbness and tingling is improving although still residual. She denies having any chest pain, shortness of breath, fever or chills. She will be discharged home today. She will follow up with her PCP in one week - Time spent with patient Time with patient DS: Greater than 30 minutes Diagnosis - Discharge Diagnosis (1) Hypokalemia Status: Acute (2) Chronic kidney disease Status: Chronic (3) Right hand paresthesia Status: Acute Specialty Discharge - Follow Up or Referrals Follow up with: Leon Ha MD [Physician] - 2 Weeks Discharge Plan - Discharge Data Disposition: Disch To Home/Self Care Condition at Discharge: Stable Discharge Diet: low salt diet Activity: resume usual activities as tolerated Hygiene: no restrictions Weight Bearing at Discharge: full weight bearing Driving: no restrictions - Discharge Medications New Aspirin Tab 325 mg PO DAILY #30 tablet Metoprolol Tartrate Tab [Lopressor Tab] 50 mg PO BID #60 tablet Continue Lisinopril [Prinivil] 10 mg PO DAILY #100 tablet NIFEdipine XL TAB [Procardia Xl] 60 mg PO BID #100 tablet cloNIDine TAB [Catapres Tab] 0.2 mg PO BID #100 tablet Discontinued Metoprolol Tartrate Tab [Lopressor Tab] 50 mg PO BID #100 tablet - Follow Up or Referral Follow Up: Leon Ha MD [Physician] - 2 Weeks - Forms/Instructions Additional Discharge Instructions: Follow up with PCP in one week Exam - Constitutional Vitals: Period Temp Pulse Resp BP Sys/Eller Pulse Ox Last 24 Hr 97.3 F-98.5 F 64-98 16-20 128-180/68-115 95-99 General appearance: over weight - Head Head exam: Present: normocephalic, atraumatic - Eye Eye exam: Present: EOMI Pupils: Present: CLIFFORD - Neck Neck exam: Absent: lymphadenopathy, thyromegaly - Respiratory Respiratory exam: Present: clear to auscultation bilaterally. Absent: accessory muscle use - Cardiovascular Cardiovascular exam: Absent: diastolic murmur, JVD, systolic murmur - GI/Abdominal GI/Abdominal exam: Present: normal bowel sounds, soft. Absent: ascites - Extremities Exam Extremities exam: Present: normal capillary refill. Absent: edema - Neurological Exam Neurological exam: Present: alert, oriented X3, CN II-XII intact - Psychiatric Psychiatric exam: Present: normal affect, normal mood - Skin Skin exam: Present: normal color Discharge Results Procedures and tests throughout hospitalization: All reviewed by nd Labs on day of discharge: Labs from last 24 hours 06/21/16 06/21/16 06:08 06:08 WBC 4.6 RBC 3.59 L Hgb 9.8 L Hct 30.7 L MCV 85.5 L MCH 27 MCHC 31.9 L RDW 16.0 Plt Count 346 MPV 11.2 Neut % (Auto) 54.0 Lymph % (Auto) 34.4 [place] % (Auto) 5.7 Eos % (Auto) 5.0 Baso % (Auto) 0.7 Neut # (Auto) 2.5 Lymph # (Auto) 1.6 [place] # (Auto) 0.3 Eos # (Auto) 0.2 Baso # (Auto) 0.0 Immature Gran % 0.2 Nucleated RBC % 0.0 Immature Gran # 0.01 Nucleated RBCs # 0.00 Sodium 145 Potassium 3.6 Chloride 106 Carbon Dioxide 27 Anion Gap 15.6 H BUN 26 H Creatinine 2.30 H GFR Calculation 33 BUN/Creatinine Ratio 11.00 Glucose 91 Calculated Osmolality 292.7 Calcium 8.8 Magnesium 1.8 - Impressions Right ulnar neuropathy: Will follow Dr. Ha as outpatient. Will add gabapentin to her regimen Chronic kidney disease stage 3-4 DS: Provider Date of admission: 06/20/16 00:16 Primary care physician: . No PCP Attending physician on admission: Juan Prajapati MD Consults: 06/20/16 01:16 Consult to Pharmacy [CONS] Routine Reason for Pharmacy Consult: Adjust Meds Renal Funct Neurology consult Discharging clinician: Juan Prajapati MD Expected date of discharge: 06/21/16
--- NOTE | 2016-06-21 10:47 | Quality Management ---
The patient's LDL is 130. Please order the appropriate medication or provide a contraindication PRIOR to discharge. To complete this task, you will need to order the medication OR provide a contraindication utilizing the Order Management screen. DO NOT ORDER OR PROVIDE CONTRAINDICATIONS WITHIN THIS QUERY. THIS IS A MEANINGFUL USE REQUIREMENT! Thank you, Bess Arellano RN Clinical Recreation Worker W [phone] [facility] CENTERShirin
== END 2016-06-21 11:42 | disposition home or self-care (01) ==
LOC: N.ED 23:05 → INTOOBSV 06-20 00:16 → N.EDINP 06-20 00:16 → N.5E 06-20 01:03
PROVIDERS: ADMIT Student in an Organized Health Care Education/Training Program; ATTEND Student in an Organized Health Care Education/Training Program

== ENCOUNTER 2018-10-23 14:21 | Inpatient (IN) ==
[2018-10-23] MEDS ORDERED: LABETALOL 100 MG/20 ML VIAL IV STA (15:02)
[2018-10-23] MEDS ORDERED: hydrALAZINE 20 MG/1 ML VIAL ONE (16:10)
[2018-10-23] MEDS ORDERED: hydrALAZINE 20 MG/1 ML VIAL IV STA (16:11)
[2018-10-23 16:31] LABS: Apearance,Urine Slightly Hazy (Clear); Bacteria,Urine Few /HPF (Few); Bilirubin,Urine Negative (Negative); Blood, Urine Negative (Negative); Glucose,Urine (UA) Negative (Negative); Ketones,Urine Negative (Negative); Mucus,Urine Occasional /LPF (Occasional); Nitrite,Urine Negative (Negative); Protein,Urine >=500 MG/DL; RBC,Urine 6 /HPF (0-4); Squamous Epithelial Cell,Urine Occasional /HPF (0-10); Urine Color Yellow (Yellow); Urine Specific Gravity 1.023 (1.001-1.035); Urine Urobilinogen < 2.0 EU/DL (0.2-1.0)
[2018-10-23 16:37] LABS: Barbiturates Screen,Urine Negative (Negative); Benzodiazepines Screen,Urine Negative (Negative); Cannabinoid Screen,Urine Negative (Negative); Opiate Screen,Urine Negative (Negative); Phencyclidine Screen,Urine Negative (Negative)
[2018-10-23 16:44] LABS: Basophils % 0.7 % (0.0-0.8); Eosinophils # 0.1 10*3/uL (0.0-0.87); Eosinophils % 1.3 % (0.00-10.9); Hematocrit 39.1 VOL% (35.7-47.0); Hemoglobin 12.2 GM/DL (12.0-16.0); Immature Granulocytes % 0.2 %; Immature Granulocytes Absolute 0.01 #; Lymphocytes # 1.2 10*3/uL (1.4-4.0); Lymphocytes % 20.2 % (21.3-54.2); Mean Corpuscular HGB Conc 31.2 GM/DL (32-36); Mean Corpuscular Volume 85.4 FL (87-102); Mean Platelet Volume 12.4 FL (9.6-12.0); Monocytes % 6.1 % (1.7-12.7); Neutrophils % 71.5 % (38.7-73.9); Platelet Count 228 T/CUMM (130-400); Red Blood Count 4.58 MC/CUMM (3.8-5.5); Red Cell Distribution Width 15.6 % (9.3-17.3); White Blood Count 5.9 T/CUMM (4-12)
[2018-10-23 16:50] LABS: PT Patient Result 10.9 SECS
[2018-10-23 17:06] LABS: Alanine Aminotransferase 33 U/L (13-56); Albumin 3.7 G/DL (3.4-5.0); Alkaline Phosphatase 101 U/L (45-117); Aspartate Amino Transferase 35 U/L (0-37); Blood Urea Nitrogen 26 MG/DL (7-18); Calcium 9.1 MG/DL (8.5-10.1); Glucose 108 MG/DL (74-106); Total Protein 7.8 G/DL (6.4-8.3)
[2018-10-23] MEDS ORDERED: ONDANSETRON 4 MG/2 ML VIAL IV PRN (18:32)
[2018-10-23] MEDS ORDERED: LABETALOL 20 MG/4 ML SYRINGE IV PRN (18:32)
[2018-10-23] MEDS: SODIUM CHLORIDE 0.9% 1,000 ML IV SCH (20:23)
[2018-10-23] MEDS: ATORVASTATIN 80 MG TABLET PO SCH (20:28)
[2018-10-24 01:30] LABS: Basophils % 0.5 % (0.0-0.8); Eosinophils % 0.4 % (0.00-10.9); Hematocrit 39.7 VOL% (35.7-47.0); Hemoglobin 12.7 GM/DL (12.0-16.0); Immature Granulocytes % 0.2 %; Immature Granulocytes Absolute 0.02 #; Lymphocytes # 1.3 10*3/uL (1.4-4.0); Lymphocytes % 16.3 % (21.3-54.2); Mean Corpuscular Volume 85.4 FL (87-102); Mean Platelet Volume 12.1 FL (9.6-12.0); Monocytes % 6.1 % (1.7-12.7); Neutrophils % 76.5 % (38.7-73.9); Platelet Count 234 T/CUMM (130-400); Red Blood Count 4.65 MC/CUMM (3.8-5.5); Red Cell Distribution Width 15.8 % (9.3-17.3); White Blood Count 8.2 T/CUMM (4-12)
[2018-10-24] MEDS: LABETALOL 100 MG/20 ML VIAL IV PRN ×2 (01:33→06:00)
[2018-10-24] MEDS ORDERED: LABETALOL 100 MG/20 ML VIAL IV PRN (01:49)
[2018-10-24 02:16] LABS: Calcium 8.8 MG/DL (8.5-10.1); Osmolality,Calculated 291.7 MOS/KG (273-304); Risk Ratio 4.53; Thyroid Stimulating Hormone 1.69 uIU/ml (0.358-3.74); VLDL CHOLESTEROL 19.8 MG/DL
[2018-10-24] MEDS: SODIUM CHLORIDE 0.9% 1,000 ML IV SCH (06:06)
[2018-10-24] MEDS ORDERED: SPIRONOLACTONE 100 MG TABLET PO SCH (09:00)
[2018-10-24] MEDS: ASPIRIN EC 81 MG TABLET PO SCH (09:10)
[2018-10-24] MEDS: CARVEDILOL 12.5 MG TABLET PO SCH ×2 (09:10→17:09)
[2018-10-24] MEDS: PANTOPRAZOLE 40 MG TABLET PO SCH (09:10)
[2018-10-24] MEDS: hydrALAZINE 20 MG/1 ML VIAL IV PRN ×2 (12:12→20:58)
[2018-10-24] MEDS: ATORVASTATIN 80 MG TABLET PO SCH (21:00)
[2018-10-24] MEDS: POTASSIUM CHLORIDE 20 MEQ/15 ML UDCUP PO PRN ×2 (21:00→23:47)
[2018-10-25] MEDS: hydrALAZINE 20 MG/1 ML VIAL IV PRN ×3 (05:07→18:03)
[2018-10-25 05:21] LABS: Calcium 9.1 MG/DL (8.5-10.1); Osmolality,Calculated 279.8 MOS/KG (273-304)
[2018-10-25] MEDS: ACETAMINOPHEN 325 MG TABLET PO PRN (07:38)
[2018-10-25] MEDS: CARVEDILOL 12.5 MG TABLET PO SCH ×2 (07:39→16:02)
[2018-10-25] MEDS: SODIUM CHLORIDE 0.9% 1,000 ML IV SCH (09:19)
[2018-10-25] MEDS: ASPIRIN EC 81 MG TABLET PO SCH (09:32)
[2018-10-25] MEDS: PANTOPRAZOLE 40 MG TABLET PO SCH (09:32)
[2018-10-25 14:08] LABS: Calcium 8.4 MG/DL (8.5-10.1); Osmolality,Calculated 289.1 MOS/KG (273-304)
[2018-10-25] MEDS: ASPIRIN 325 MG TABLET PO SCH (15:58)
[2018-10-25] MEDS: ATORVASTATIN 80 MG TABLET PO SCH (20:37)
[2018-10-26] MEDS: hydrALAZINE 20 MG/1 ML VIAL IV PRN (00:15)
[2018-10-26] MEDS: ACETAMINOPHEN 325 MG TABLET PO PRN (05:33)
[2018-10-26 07:35] LABS: Calcium 8.6 MG/DL (8.5-10.1); Osmolality,Calculated 285.3 MOS/KG (273-304)
[2018-10-26] MEDS: PANTOPRAZOLE 40 MG TABLET PO SCH (09:27)
[2018-10-26] MEDS: POTASSIUM CHLORIDE 20 MEQ/15 ML UDCUP PO PRN ×3 (09:27→15:57)
[2018-10-26] MEDS: CARVEDILOL 12.5 MG TABLET PO SCH ×2 (09:27→16:49)
[2018-10-26] MEDS: ASPIRIN 325 MG TABLET PO SCH (09:27)
[2018-10-26] MEDS ORDERED: POTASSIUM CHLORIDE 20 MEQ TABLET PO SCH (11:00)
[2018-10-26] MEDS: ATORVASTATIN 80 MG TABLET PO SCH (21:22)
[2018-10-27 04:39] LABS: Basophils % 0.5 % (0.0-0.8); Eosinophils # 0.3 10*3/uL (0.0-0.87); Hematocrit 36.4 VOL% (35.7-47.0); Hemoglobin 11.6 GM/DL (12.0-16.0); Immature Granulocytes % 0.4 %; Immature Granulocytes Absolute 0.03 #; Lymphocytes # 1.3 10*3/uL (1.4-4.0); Mean Corpuscular HGB Conc 31.9 GM/DL (32-36); Mean Corpuscular Volume 86.5 FL (87-102); Mean Platelet Volume 11.7 FL (9.6-12.0); Monocytes % 8.3 % (1.7-12.7); Neutrophils % 72.8 % (38.7-73.9); Platelet Count 247 T/CUMM (130-400); Red Blood Count 4.21 MC/CUMM (3.8-5.5); White Blood Count 8.5 T/CUMM (4-12)
[2018-10-27 05:03] LABS: Calcium 8.2 MG/DL (8.5-10.1); Osmolality,Calculated 287.3 MOS/KG (273-304)
[2018-10-27] MEDS: PANTOPRAZOLE 40 MG TABLET PO SCH (08:27)
[2018-10-27] MEDS: CARVEDILOL 12.5 MG TABLET PO SCH ×2 (08:27→17:45)
[2018-10-27] MEDS: ASPIRIN 325 MG TABLET PO SCH (08:27)
[2018-10-27] MEDS: ATORVASTATIN 80 MG TABLET PO SCH (21:06)
[2018-10-28 04:49] LABS: Basophils % 0.6 % (0.0-0.8); Eosinophils # 0.3 10*3/uL (0.0-0.87); Eosinophils % 4.6 % (0.00-10.9); Hematocrit 37.3 VOL% (35.7-47.0); Hemoglobin 11.9 GM/DL (12.0-16.0); Immature Granulocytes % 0.3 %; Immature Granulocytes Absolute 0.02 #; Lymphocytes # 1.6 10*3/uL (1.4-4.0); Lymphocytes % 23.8 % (21.3-54.2); Mean Corpuscular HGB Conc 31.9 GM/DL (32-36); Mean Corpuscular Volume 85.9 FL (87-102); Mean Platelet Volume 12.8 FL (9.6-12.0); Neutrophils % 62.7 % (38.7-73.9); Platelet Count 222 T/CUMM (130-400); Red Blood Count 4.34 MC/CUMM (3.8-5.5); Red Cell Distribution Width 15.9 % (9.3-17.3); White Blood Count 6.5 T/CUMM (4-12)
[2018-10-28 05:23] LABS: Calcium 8.4 MG/DL (8.5-10.1); Osmolality,Calculated 290.1 MOS/KG (273-304)
[2018-10-28] MEDS ORDERED: hydrALAZINE 25 MG TABLET PO SCH (09:01)
[2018-10-28] MEDS: ASPIRIN 325 MG TABLET PO SCH (09:02)
[2018-10-28] MEDS: PANTOPRAZOLE 40 MG TABLET PO SCH (09:02)
[2018-10-28] MEDS: CARVEDILOL 12.5 MG TABLET PO SCH (09:02)
[2018-10-28 12:15] VITALS: BP 164/93
== END 2018-10-28 15:58 | DRG 65 ==
LOC: N.ED 14:21 → N.2E 18:32 → SUATTDRO 18:32 → N.2E 19:32
PROVIDERS: ADMIT Internal Medicine; ATTEND Internal Medicine

== ENCOUNTER 2021-06-20 15:35 | Observation (INO) ==
[2021-06-20 22:07] LABS: Albumin 3.8 G/DL (3.4-5.0); Basophils % 0.5 % (0.0-0.8); Bilirubin,Total 0.6 MG/DL (0.20-1.00); Calcium 8.1 MG/DL (8.5-10.1); Eosinophils # 0.2 10*3/uL (0.0-0.87); Eosinophils % 2.6 % (0.00-10.9); Hematocrit 35.9 VOL% (35.7-47.0); Hemoglobin 11.2 GM/DL (12.0-16.0); Immature Granulocytes % 0.3 %; Immature Granulocytes Absolute 0.02 #; Lymphocytes # 1.9 10*3/uL (1.4-4.0); Lymphocytes % 24.5 % (21.3-54.2); Mean Corpuscular HGB Conc 31.2 GM/DL (32-36); Mean Corpuscular Volume 90.2 FL (87-102); Mean Platelet Volume 10.6 FL (9.6-12.0); Monocytes % 8.3 % (1.7-12.7); Neutrophils % 63.8 % (38.7-73.9); Osmolality,Calculated 295.4 MOS/KG (273-304); Platelet Count 274 T/CUMM (130-400); Potassium 5.8 MMOL/L (3.5-5.1); Red Blood Count 3.98 MC/CUMM (3.8-5.5); Red Cell Distribution Width 13.9 % (9.3-17.3); Total Protein 7.9 G/DL (6.4-8.2); White Blood Count 7.6 T/CUMM (4-12)
[2021-06-20] MEDS ORDERED: DEXTROSE 50% 25 GM/50 ML VIAL IV STA (23:04)
[2021-06-20] MEDS ORDERED: INSULIN REGULAR 100 UNIT/ML IV STA (23:04)
[2021-06-20] MEDS ORDERED: DEXTROSE 50% 25 GM/50 ML SYRINGE IV STA (23:07)
[2021-06-20] MEDS ORDERED: hydrALAZINE 20 MG/1 ML VIAL IV PRN (23:59)
[2021-06-20] MEDS ORDERED: ACETAMINOPHEN 325 MG TABLET PO PRN (23:59)
[2021-06-20] MEDS ORDERED: DEXTROSE 10% 250 ML BAG IV PRN (23:59)
[2021-06-20] MEDS ORDERED: ONDANSETRON 4 MG/2 ML VIAL IV PRN (23:59)
[2021-06-20] MEDS ORDERED: GLUCAGON 1 MG VIAL IM PRN (23:59)
[2021-06-20] MEDS ORDERED: SODIUM POLYSTYRENE SULFATE 15 GM/60 ML BOTTLE PO STA (23:59)
[2021-06-21 05:41] LABS: Calcium 8.2 MG/DL (8.5-10.1); Osmolality,Calculated 295.4 MOS/KG (273-304); Potassium 5.1 MMOL/L (3.5-5.1)
[2021-06-21 07:59] LABS: Squamous Epithelial Cell,Urine Occasional /HPF (0-10); Urine Appearance Clear (Clear); Urine Color Yellow (Yellow); Urine pH 5.5 (4.5-8.0)
[2021-06-21 08:00] LABS: Bilirubin,Urine Negative (Negative); Blood, Urine Negative (Negative); Glucose,Urine (UA) Negative (Negative); Ketones,Urine Negative (Negative); Nitrite,Urine Negative (Negative); Protein,Urine Negative (Negative); Urine Urobilinogen 0.2 eU/dL (<2.0)
[2021-06-21] MEDS ORDERED: ERGOCALCIFEROL 50,000 UNIT CAPSULE PO SCH (08:00)
[2021-06-21] MEDS: carvediloL 25 MG TABLET PO SCH ×2 (08:48→22:07)
[2021-06-21] MEDS: ASPIRIN EC 81 MG TABLET PO SCH (08:48)
[2021-06-21] MEDS: FUROSEMIDE 20 MG TABLET PO SCH (08:48)
[2021-06-21] MEDS: PANTOPRAZOLE 40 MG TABLET PO SCH (08:48)
[2021-06-21] MEDS: SPIRONOLACTONE 100 MG TABLET PO SCH ×2 (08:50→22:07)
[2021-06-21] MEDS: HEPARIN 5,000 UNIT/1 ML VIAL SUBCUT SCH (12:15)
[2021-06-21] MEDS ORDERED: ATORVASTATIN 80 MG TABLET PO SCH (21:00)
[2021-06-22] MEDS: HEPARIN 5,000 UNIT/1 ML VIAL SUBCUT SCH ×2 (00:52→17:36)
[2021-06-22 06:23] LABS: Basophils % 0.4 % (0.0-0.8); Eosinophils # 0.2 10*3/uL (0.0-0.87); Eosinophils % 3.1 % (0.00-10.9); Hematocrit 33.6 VOL% (35.7-47.0); Hemoglobin 10.4 GM/DL (12.0-16.0); Immature Granulocytes % 0.4 %; Immature Granulocytes Absolute 0.03 #; Lymphocytes % 28.7 % (21.3-54.2); Mean Corpuscular Volume 90.8 FL (87-102); Mean Platelet Volume 11.2 FL (9.6-12.0); Monocytes % 8.1 % (1.7-12.7); Neutrophils % 59.3 % (38.7-73.9); Platelet Count 235 T/CUMM (130-400); Red Cell Distribution Width 13.9 % (9.3-17.3)
[2021-06-22 06:33] LABS: Calcium 7.9 MG/DL (8.5-10.1); Osmolality,Calculated 293.5 MOS/KG (273-304); Potassium 4.9 MMOL/L (3.5-5.1)
[2021-06-22 06:46] LABS: Risk Ratio 3.44; VLDL Cholesterol 24.6 MG/DL
[2021-06-22] MEDS: SPIRONOLACTONE 100 MG TABLET PO SCH (08:57)
[2021-06-22] MEDS: ASPIRIN EC 81 MG TABLET PO SCH (08:57)
[2021-06-22] MEDS: PANTOPRAZOLE 40 MG TABLET PO SCH (08:58)
[2021-06-22] MEDS: FUROSEMIDE 20 MG TABLET PO SCH (08:58)
[2021-06-22] MEDS: carvediloL 25 MG TABLET PO SCH (08:58)
[2021-06-22 11:56] VITALS: BP 135/96
== END 2021-06-22 14:47 | disposition home or self-care (01) ==
LOC: N.EDINP 15:35 → N.ED 15:35 → N.EDINP 06-21 01:58 → N.TELEN 06-21 02:50
PROVIDERS: ADMIT Internal Medicine; ATTEND Internal Medicine